=== PATIENT | female | born 1975 | race Two or more races ===

== ENCOUNTER → 2022-01-28 08:20 | Outpatient (BNVA) | payer MEDICARE, SELFPAY | PROVIDERS: PCP Internal Medicine; Visit Provider Psychiatry & Neurology Neurology | DX: R20.2 Paresthesia of skin (principal); M54.2 Cervicalgia | CPT/HCPCS: 99202 ==

== ENCOUNTER 2022-06-09 12:06 | Outpatient (REF) | payer MEDICARE, SELFPAY ==
--- NOTE | 2022-06-09 10:00 | EMG_ITS ---
Please see scanned EMG / Nerve Conduction Report. MTDD
== END 2022-06-09 12:07 | disposition home or self-care (01) ==
LOC: HO.NEURO 12:06
PROVIDERS: PCP Internal Medicine; Visit Provider Psychiatry & Neurology Neurology
DX: R20.2 Paresthesia of skin (principal)
CPT/HCPCS: 95885; 95913

== ENCOUNTER → 2022-06-15 13:11 | Outpatient (BNVA) | payer MEDICARE, SELFPAY | PROVIDERS: PCP Internal Medicine; Visit Provider Psychiatry & Neurology Neurology | DX: G56.03 Carpal tunnel syndrome, bilateral upper limbs (principal); M54.2 Cervicalgia | CPT/HCPCS: 99212 ==

== ENCOUNTER 2022-09-16 09:30 | Outpatient (AMB) | payer MEDICARE, SELFPAY ==
--- NOTE | 2022-09-16 09:40 | MHC.OFFVIS ---
Intake Vital Signs 09/16/22 09:43 Weight 169 lb BP 108/72 Blood Pressure Location Lt brachial Position Sitting Pulse 108 H Pulse Source Pulse Oximeter Pulse Oximetry (%) 94 Oxygen Delivery Method Room Air Intake Visit Reasons: 3m follow up bilateral upper extrem numb/EMG neg Intake Note: F/U for numbness in bilateral upper Extremeties [employer] Required: No Allergies Penicillins Allergy (Severe, Verified 09/16/22 09:41) swelling/edema Medication List - Last Reconciled 09/16/22 by Rome Trevino CNP aspirin 81 mg PO DAILY baclofen 10 mg PO BEDTIME cariprazine 1.5 mg PO DAILY cholecalciferol (vitamin D3) 10 mcg PO DAILY gabapentin 300 mg PO TID pravastatin 20 mg PO DAILY tamoxifen 20 mg PO DAILY valacyclovir (Valtrex) 500 mg PO DAILY [wrist braces As directed- bilateral] HPI HPI Comments History of Present Illness Details 46 y/o female comes for follow up of carpal tunnel and bilateral hands numbness. Repeat EMG was c/w carpal tunnel L>R. She had a cortisone injection on her left wrist yesterday and plans to have q 6 months. She uses wrist braces every night. She also takes vitamin B12 1000 mcg daily. She feels better with gabapentin 300 TID. The paresthesias are episodic and worse at night. She also reports pain and discomfort at night . Pt wants to try one more cortisone injection and will consider surgery for carpal tunnel. [facility] Medical History Bipolar 1 disorder Carpal tunnel syndrome on both sides Cervical dysplasia Depression Eczema HSV-2 (herpes simplex virus 2) infection Overactive bladder Surgical History H/O lithotripsy H/O total hysterectomy [place] teeth extracted Family History Father Esophageal cancer Mother Diabetes Hypertension Ovarian cancer Brother Mental disorder Sister Mental disorder Maternal Grandmother Diabetes Hypertension Breast cancer Esophageal cancer Social History Alcohol intake: current Alcohol intake frequency: holidays/special occasions only Patient Tobacco Use Status: Never used Tobacco Review of Systems Const All systems reviewed & are unremarkable except as noted in HPI and below Physical Exam Const General: cooperative, healthy appearing, comfortable and no acute distress Nutritional Appearance: overweight Orientation/consciousness: patient oriented x3 Limitations: no limitations HEENT Head: Yes normal to inspection and Yes normocephalic Neck Other: muscle spasm Neck: Yes no meningeal signs Neuro General: patient oriented x3, gait normal, tone normal, moves all extremities, no meningeal signs, no focal motor deficits and deep tendon reflexes 2+ bilaterally Cranial nerves: Yes CN's II-XII intact bilaterally, Yes Bilaterally intact EOM present, Yes Nystagmus not present, Yes Normal facial strength present and Yes Midline tongue present Cognition (Neuro): normal cognition Gait exam (Neuro): Normal gait present Motor exam (neuro): 5/5 motor strength present throughout and Normal motor muscle tone present throughout Coordination: [id number] test normal Assessment & Plan Assessment & Plan (1) Carpal tunnel syndrome on both sides: Code(s): G56.03 - Carpal tunnel syndrome, bilateral upper limbs (2) Cervicalgia: Code(s): M54.2 - Cervicalgia Plan Continue to use wrist splints when she is working and sleeping. Suggested hand exercises. Continue to take vitamin B12 100 mcg daily and gabapentin 300 mg TID. Continue to have cortisone injection and will consider to refer her to hand surgery if she does not respond. Coding Level of Care Code Est Pt Level 3 (02050) Diagnoses Carpal tunnel syndrome on both sides G56.03 Cervicalgia M54.2
[2022-09-16 09:43] VITALS: BP 108/72; PULSE 108; O2SAT 94
== END 2022-09-16 09:58 | disposition home or self-care (01) ==
PROVIDERS: Visit Provider Nurse Practitioner Family
DX: G56.03 Carpal tunnel syndrome, bilateral upper limbs (principal); M54.2 Cervicalgia
CPT/HCPCS: 99213

== ENCOUNTER → 2022-09-16 09:30 | Outpatient (BNVA) | payer MEDICARE, SELFPAY | PROVIDERS: Visit Provider Nurse Practitioner Family | DX: G56.03 Carpal tunnel syndrome, bilateral upper limbs (principal); M54.2 Cervicalgia; Z79.899 Other long term (current) drug therapy | CPT/HCPCS: 99212 ==

== ENCOUNTER 2023-05-19 08:49 | Outpatient (AMB) | payer MEDICARE, SELFPAY ==
--- NOTE | 2023-05-19 08:55 | A.OFFVIS_ITS ---
Intake Vital Signs 05/19/23 09:04 Height 5 ft Weight 152 lb 8 oz BMI 29.8 BP 112/70 Blood Pressure Location Lt brachial Position Sitting Pulse 72 Pulse Source Pulse Oximeter Pulse Oximetry (%) 99 Oxygen Delivery Method Room Air Intake Visit Reasons: 8 mnts f/u appt - CONF w/address Intake Note: Patient request 8 months F/U. Allergies Penicillins Allergy (Severe, Verified 05/19/23 08:59) swelling/edema HPI HPI Comments History of Present Illness Details 46 y/o female comes for follow up of car pal tunnel and bilateral hands numbness. Repeat EMG was c/w carpal tunnel L>R. She had a cortisone injection on her left wrist twice so far, and she plans to have q 6 months. Numbness of her left hand has improved. The paresthesias are episodic and worse at night. She uses wrist braces every night. She feels better with gabapentin 300 TID. [facility] Medical History Bipolar 1 disorder Carpal tunnel syndrome on both sides Cervical dysplasia Depression Eczema HSV-2 (herpes simplex virus 2) infection Overactive bladder Surgical History H/O total hysterectomy H/O lithotripsy [place] teeth extracted Family History Father Esophageal cancer Mother Diabetes Hypertension Ovarian cancer Brother Mental disorder Sister Mental disorder Maternal Grandmother Diabetes Hypertension Breast cancer Esophageal cancer Maternal Aunt Breast cancer in female Social History Alcohol intake: current Alcohol intake frequency: holidays/special occasions only Patient Tobacco Use Status: Never used Tobacco Review of Systems Const All systems reviewed & are unremarkable except as noted in HPI and below Physical Exam Vital Signs: Last Vital Signs Pulse 72 05/19/23 09:04 BP 112/70 05/19/23 09:04 Pulse Ox 99 05/19/23 09:04 Oxygen Delivery Method Room Air 05/19/23 09:04 BMI result Body Mass Index 29.8 Const General: cooperative, healthy appearing, comfortable and no acute distress Nutritional Appearance: overweight Orientation/consciousness: patient oriented x3 Limitations: no limitations HEENT Head: Yes normal to inspection and Yes normocephalic Neck Other: muscle spasm Neck: Yes no meningeal signs Neuro General: patient oriented x3, gait normal, tone normal, moves all extremities, no meningeal signs, no focal motor deficits and deep tendon reflexes 2+ bilaterally Cranial nerves: Yes CN's II-XII intact bilaterally, Yes Bilaterally intact EOM p resent, Yes Nystagmus not present, Yes Normal facial strength present and Yes Midline tongue present Cognition (Neuro): normal cognition Gait exam (Neuro): Normal gait present Motor exam (neuro): 5/5 motor strength present throughout and Normal motor muscle tone present throughout Coordination: [id number] test normal Assessment & Plan Assessment & Plan (1) Carpal tunnel syndrome on both sides: Code(s): G56.03 - Carpal tunnel syndrome, bilateral upper limbs (2) Cervicalgia: Code(s): M54.2 - Cervicalgia Plan Continue to use wrist splints when she is working and sleeping. Suggested hand exercises. Continue to take gabapentin 300 mg TID. Continue to have cortisone injection and will consider to refer her to [facility] if she does not respond. Coding Level of Care Code Est Pt Level 3 (67997) Diagnoses Carpal tunnel syndrome on both sides G56.03 Cervicalgia M54.2
[2023-05-19 09:04] VITALS: BP 112/70; PULSE 72; O2SAT 99; BMI 29.8
== END 2023-05-19 09:14 | disposition home or self-care (01) ==
PROVIDERS: PCP Internal Medicine; Visit Provider Nurse Practitioner Family
DX: G56.03 Carpal tunnel syndrome, bilateral upper limbs (principal); M54.2 Cervicalgia
CPT/HCPCS: 99213

== ENCOUNTER → 2023-05-19 08:49 | Outpatient (BNVA) | payer MEDICARE, SELFPAY | PROVIDERS: PCP Internal Medicine; Visit Provider Nurse Practitioner Family | DX: G56.03 Carpal tunnel syndrome, bilateral upper limbs (principal); M54.2 Cervicalgia | CPT/HCPCS: 99212 ==